=== PATIENT | male | born 1940 | race Caucasian/White ===

== ENCOUNTER → 2017-07-21 | Outpatient (CLI) | payer OTHER | END | disposition home or self-care (01) | LOC: OIH 15:39 | PROVIDERS: ATTEND Family Medicine | DX: M19.021 Primary osteoarthritis, right elbow (principal); M19.031 Primary osteoarthritis, right wrist; M79.89 Other specified soft tissue disorders | CPT/HCPCS: 73080; 73090 ==

== ENCOUNTER → 2017-12-03 | Outpatient (CLI) | payer OTHER | END | disposition home or self-care (01) | LOC: OIH 10:44 | PROVIDERS: ATTEND Family Medicine | DX: Z01.818 Encounter for other preprocedural examination (principal); M47.894 Other spondylosis, thoracic region | CPT/HCPCS: 71046 ==

== ENCOUNTER → 2018-12-27 | Outpatient (CLI) | payer OTHER | END | disposition home or self-care (01) | LOC: RAH 13:16 | PROVIDERS: ATTEND Family Medicine | DX: M17.12 Unilateral primary osteoarthritis, left knee (principal); M25.572 Pain in left ankle and joints of left foot; M25.562 Pain in left knee; M79.89 Other specified soft tissue disorders; R60.0 Localized edema | CPT/HCPCS: 73590; 73610; 73630; 93971 ==

== ENCOUNTER 2021-06-10 10:16 | Emergency (ER) | payer OTHER ==
[~2021-06-10] VITALS: Ht 165.1 cm; Wt 86.2 kg
[2021-06-10] MEDS ORDERED: MORPHINE 4 MG SYG IM SCH (11:00)
[2021-06-10 12:44] VITALS: BP 142/84
== END 2021-06-10 12:56 | disposition home or self-care (01) ==
LOC: EDH 10:16
DX: M17.12 Unilateral primary osteoarthritis, left knee (principal); G89.29 Other chronic pain; M25.562 Pain in left knee; M54.50 Low back pain, unspecified; I10 Essential (primary) hypertension
CPT/HCPCS: 73562; 96372; 99283; J2270

== ENCOUNTER 2021-10-07 13:03 | Emergency (ER) | payer OTHER ==
[~2021-10-07] VITALS: Ht 167.6 cm; Wt 86.2 kg
[2021-10-07 13:26] LABS: BASOPHILS % (AUTO) 0.6 % (0.0-5.0); HEMATOCRIT 43.6 % (42-54); LYMPHOCYTES % (AUTO) 12.6 % (21.0-51.0); MEAN CORPUSCULAR HEMOGLOBIN 29.3 pg (27.0-33.0); MEAN CORPUSCULAR VOLUME 88.8 fL (79-99); MONOCYTES % (AUTO) 9.9 % (3.0-13.0); NEUTROPHILS % (AUTO) 75.7 % (40.0-77.0); PLATELET COUNT (AUTO) 219 K/uL (130-400); RED BLOOD CELL COUNT(AUTO) 4.91 MIL/uL (4.50-6.20); RED CELL DISTRIBUTION WIDTH 13.7 % (11.0-15.5); WHITE BLOOD COUNT (AUTO) 8.4 K/uL (4.8-10.8)
[2021-10-07] MEDS ORDERED: ONDANSETRON 4MG INJ IVP ONE (13:30)
[2021-10-07] MEDS ORDERED: 0.9%NACL 1000ML 1,000 ML IV ONE (13:30)
[2021-10-07] MEDS ORDERED: FAMOTIDINE 20MG VIAL IV ONE (13:30)
[2021-10-07] MEDS ORDERED: DICYCLOMINE 20MG (10MG/ML) AMP IM STA (13:32)
[2021-10-07 13:39] LABS: CREATININE 0.8 mg/dL (0.5-1.5); POTASSIUM 3.8 mmol/L (3.5-5.1)
[2021-10-07 13:49] LABS: ALBUMIN 3.8 g/dL (3.5-5.0); BILIRUBIN,TOTAL 0.3 mg/dL (0.2-1.0); TOTAL PROTEIN, SERUM 7.5 g/dL (6.0-8.3)
[2021-10-07 14:09] LABS: B-TYPE NATRIURETIC PEPTIDE 298 pg/mL (0-100)
[2021-10-07 15:27] LABS: APPEARANCE,URINE Clear (CLEAR); BILIRUBIN,URINE Negative (NEGATIVE); COLOR,URINE Yellow (YELLOW); GLUCOSE, URINE (UA) Negative (NEGATIVE); KETONES,URINE Negative (NEGATIVE); LEUKOCYTE ESTERASE ,URINE Negative (NEGATIVE); NITRATE,URINE Negative (NEGATIVE); OCCULT BLOOD,URINE Negative (NEGATIVE); PROTEIN,URINE Negative (NEGATIVE); UROBILINOGEN,URINE 0.2 mg/dL (0.2-1.0)
[2021-10-07] MEDS ORDERED: KETOROLAC 15MG/ML VIAL (15MG/ML) IV ONE (15:30)
[2021-10-07 17:04] VITALS: BP 145/65
== END 2021-10-07 17:06 | disposition home or self-care (01) ==
LOC: EDH 13:03
DX: R19.7 Diarrhea, unspecified (principal); R11.2 Nausea with vomiting, unspecified; M79.10 Myalgia, unspecified site; R53.1 Weakness; Z20.822 Contact with and (suspected) exposure to COVID-19; I10 Essential (primary) hypertension; E78.00 Pure hypercholesterolemia, unspecified; F41.9 Anxiety disorder, unspecified
CPT/HCPCS: 36415; 71045; 80053; 81003; 83880; 84484; 85025; 87635; 87804 ×2; 93005; 96361; 96374; 96375; 99285; C9803; J0500; J1885; J2405; J3490; J7030

== ENCOUNTER 2021-10-20 06:09 | Observation (INO) | payer OTHER ==
[2021-10-17 09:30] LABS: EOSINOPHILS % (AUTO) 3.4 % (0.0-8.0); HEMATOCRIT 45.2 % (42-54); LYMPHOCYTES % (AUTO) 20.3 % (21.0-51.0); MEAN CORPUSCULAR HGB CONC 32.1 g/dL (32.0-36.0); MEAN CORPUSCULAR VOLUME 90.4 fL (79-99); MONOCYTES % (AUTO) 14.4 % (3.0-13.0); NEUTROPHILS % (AUTO) 60.6 % (40.0-77.0); PLATELET COUNT (AUTO) 200 K/uL (130-400); RED CELL DISTRIBUTION WIDTH 13.6 % (11.0-15.5); WHITE BLOOD COUNT (AUTO) 6.3 K/uL (4.8-10.8)
[2021-10-17 09:31] LABS: APPEARANCE,URINE Clear (CLEAR); BILIRUBIN,URINE Negative (NEGATIVE); COLOR,URINE Yellow (YELLOW); GLUCOSE, URINE (UA) Negative (NEGATIVE); KETONES,URINE Negative (NEGATIVE); LEUKOCYTE ESTERASE ,URINE Negative (NEGATIVE); NITRATE,URINE Negative (NEGATIVE); OCCULT BLOOD,URINE Negative (NEGATIVE); PROTEIN,URINE Negative (NEGATIVE); UROBILINOGEN,URINE 0.2 mg/dL (0.2-1.0)
[2021-10-17 09:41] LABS: INR 1.72 (0.85-1.15); PROTHROMBIN TIME 17.8 SEC (9.6-11.6)
[2021-10-17 09:43] LABS: CREATININE 0.8 mg/dL (0.5-1.5); POTASSIUM 4.2 mmol/L (3.5-5.1)
[2021-10-17 11:48] VITALS: BP 137/69
[2021-10-20] VITALS (22 sets, daily range): BP systolic 120–147; BP diastolic 67–103
[~2021-10-20] VITALS: Ht 167.6 cm; Wt 86.3 kg
[2021-10-20] MEDS ORDERED: 0.9%NACL 1000ML 1,000 ML IV ONE (06:35)
[2021-10-20 07:01] LABS: INR 1.15 (0.85-1.15); PROTHROMBIN TIME 12.4 SEC (9.6-11.6)
[2021-10-20] MEDS: CEFAZOLIN SODIUM 1 GM VIAL ONE ×2 (08:04→09:20)
[2021-10-20] MEDS ORDERED: PHENYLEPHRINE HCL 10 MG/ML 1ML VIAL IV ONE (08:13)
[2021-10-20] MEDS ORDERED: LIDOCAINE PF 100MG/5ML (2%) SYRINGE 5ML ONE (08:13)
[2021-10-20] MEDS ORDERED: MIDAZOLAM HCL 1 MG/ML 2ML VIAL ONE (08:13)
[2021-10-20] MEDS ORDERED: DEXAMETHASONE SOD PHOSPHATE 10MG/ML 1ML VIAL ONE (08:14)
[2021-10-20] MEDS ORDERED: FENTANYL CITRATE PF 50 MCG/1 ML 2ML VIAL ONE (08:14)
[2021-10-20] MEDS ORDERED: ONDANSETRON 4MG INJ ONE (08:14)
[2021-10-20] MEDS ORDERED: PROPOFOL 10 MG/ML 20ML VIAL IV ONE (08:14)
[2021-10-20] MEDS ORDERED: TAMS-1 PO (08:16)
[2021-10-20] MEDS ORDERED: ATEN100T PO (08:16)
[2021-10-20] MEDS ORDERED: SIMV-46 PO (08:16)
[2021-10-20] MEDS ORDERED: DIAZ2TAB3 PO (08:16)
[2021-10-20] MEDS ORDERED: METF-444 PO (08:16)
[2021-10-20] MEDS ORDERED: PANT40TA54 PO (08:16)
[2021-10-20] MEDS ORDERED: LISI20TA24 PO (08:16)
[2021-10-20] MEDS ORDERED: LAMO25TA9 PO (08:16)
[2021-10-20] MEDS ORDERED: WARF6TAB49 PO (08:16)
[2021-10-20] MEDS ORDERED: LORA10TA7 PO (08:16)
[2021-10-20] MEDS ORDERED: mvi PO (08:26)
[2021-10-20] MEDS ORDERED: testosterone PO (08:26)
[2021-10-20] MEDS ORDERED: DIPH50LI PO (08:26)
[2021-10-20] MEDS ORDERED: AMLO-257 PO (08:26)
[2021-10-20] MEDS ORDERED: BIMA12.5OS OU (08:26)
[2021-10-20] MEDS ORDERED: GABA-529 PO (08:26)
[2021-10-20] MEDS ORDERED: OLOP2.5D12 OP (08:26)
[2021-10-20] MEDS ORDERED: tylenol #4 PO (08:26)
[2021-10-20] MEDS ORDERED: BRIN8DRO OU (08:26)
[2021-10-20] MEDS ORDERED: krill oil PO (08:26)
[2021-10-20] MEDS ORDERED: vitamin b12 PO (08:26)
[2021-10-20] MEDS ORDERED: vitamin d PO (08:26)
[2021-10-20] MEDS ORDERED: OXYB10TA30 PO (08:26)
[2021-10-20] MEDS ORDERED: coq10 PO (08:26)
[2021-10-20] MEDS ORDERED: tylenol arthritis PO (08:26)
[2021-10-20] MEDS ORDERED: CEFAZOLIN SODIUM 1 GM VIAL ONE (08:39)
[2021-10-20] MEDS ORDERED: ACETAMINOPHEN 500 MG TABLET ONE (08:40)
[2021-10-20] MEDS ORDERED: KETOROLAC 15MG/ML VIAL (15MG/ML) ONE (08:40)
[2021-10-20] MEDS ORDERED: TRANEXAMIC ACID 1000MG/10ML ONE (08:40)
[2021-10-20] MEDS ORDERED: CELECOXIB 200 MG CAP ONE (08:41)
[2021-10-20] MEDS ORDERED: EPHEDRINE SULFATE 50 MG/ML AMPULE ONE (09:28)
[2021-10-20] MEDS ORDERED: ONDANSETRON 4MG INJ IVP PRN (12:00)
[2021-10-20] MEDS ORDERED: POTASSIUM CHLORIDE 20MEQ/100ML 100 ML IV PRN (12:00)
[2021-10-20] MEDS ORDERED: FERROUS FUMARATE 324 MG TABLET PO PRN (12:00)
[2021-10-20] MEDS: ACETAMINOPHEN 500 MG TABLET PO SCH ×2 (12:00→20:18)
[2021-10-20] MEDS ORDERED: KCL 20 MEQ ERTAB PO PRN (12:00)
[2021-10-20] MEDS ORDERED: DiphenhydrAMINE HCL 50 MG/ML VIAL IVP PRN (12:00)
[2021-10-20] MEDS ORDERED: POTASSIUM CHLORIDE 10% ELIXIR 20 MEQ/15 ML UDCUP PO PRN (12:00)
[2021-10-20] MEDS ORDERED: OXYCODONE HCL 5 MG TAB PO PRN (12:00)
[2021-10-20] MEDS ORDERED: TEMAZEPAM 15 MG CAPSULE PO PRN (12:00)
[2021-10-20] MEDS ORDERED: TRAMADOL HCL 50 MG TABLET PO PRN (12:00)
[2021-10-20] MEDS ORDERED: LIDOCAINE HCL-MPF 1% 2ML VIAL IV PRN (12:00)
[2021-10-20] MEDS: 0.9%NACL 1000ML 1,000 ML IV SCH ×2 (14:31→20:29)
[2021-10-20] MEDS ORDERED: LORATADINE 10 MG TABLET PO SCH (16:00)
[2021-10-20] MEDS ORDERED: DIAZEPAM 2 MG TAB PO PRN (16:00)
[2021-10-20] MEDS: INSULIN HUMULIN R 100 UNIT/ML 3ML SQ SCH (16:30)
[2021-10-20] MEDS ORDERED: PHARMACY COMMUNICATION MISC SCH (17:00)
[2021-10-20] MEDS ORDERED: HOME MEDICATION 1 EACH OP PRN (17:00)
[2021-10-20] MEDS: CEFAZOLIN SODIUM 1 GM VIAL IVP SCH (17:21)
[2021-10-20] MEDS: PHARMACY COMMUNICATION MISC SCH (17:25)
[2021-10-20] MEDS: LISINOPRIL 20 MG TABLET PO SCH (20:17)
[2021-10-20] MEDS: AMLODIPINE 5 MG TAB PO SCH (20:17)
[2021-10-20] MEDS: OXYCODONE HCL 5 MG TAB PO PRN (20:18)
[2021-10-20] MEDS: LAMOTRIGINE 25 MG TAB PO SCH (20:19)
[2021-10-20] MEDS: Bimatoprost (Lumigan 0.01% Ophth Soln) 1 DROP OU SCH (20:19)
[2021-10-20] MEDS: PREGABALIN 25 MG CAP PO SCH (20:19)
[2021-10-20] MEDS: CELECOXIB 200 MG CAP PO SCH (20:19)
[2021-10-20] MEDS: Brinzolamide/Brimonid Tart (Simbrinza 1%-0.2% Eye Drops) OU SCH (20:19)
[2021-10-20] MEDS: SIMVASTATIN 20 MG TABLET PO SCH (20:19)
[2021-10-20] MEDS ORDERED: FAMOTIDINE 20MG TAB PO SCH (21:00)
[2021-10-20] MEDS ORDERED: LAMOTRIGINE 50 MG PO SCH (21:00)
[2021-10-20] MEDS ORDERED: NON-FORMULARY MEDICATION 1 EACH (Simvastatin 40 MG) PO SCH (21:00)
[2021-10-21] VITALS (7 sets, daily range): BP systolic 127–157; BP diastolic 82–97
[2021-10-21] MEDS: CEFAZOLIN SODIUM 1 GM VIAL IVP SCH (00:51)
[2021-10-21] MEDS: PHARMACY COMMUNICATION MISC SCH ×3 (01:30→17:03)
[2021-10-21 03:41] LABS: HEMATOCRIT 37.5 % (42-54); MEAN CORPUSCULAR HEMOGLOBIN 29.2 pg (27.0-33.0); MEAN CORPUSCULAR HGB CONC 32.5 g/dL (32.0-36.0); MEAN CORPUSCULAR VOLUME 89.7 fL (79-99); RED BLOOD CELL COUNT(AUTO) 4.18 MIL/uL (4.50-6.20); RED CELL DISTRIBUTION WIDTH 13.9 % (11.0-15.5); WHITE BLOOD COUNT (AUTO) 15.5 K/uL (4.8-10.8)
[2021-10-21 03:51] LABS: CREATININE 0.7 mg/dL (0.5-1.5); POTASSIUM 3.8 mmol/L (3.5-5.1)
[2021-10-21] MEDS: ACETAMINOPHEN 500 MG TABLET PO SCH ×3 (04:21→20:41)
[2021-10-21] MEDS: INSULIN HUMULIN R 100 UNIT/ML 3ML SQ SCH ×4 (06:47→20:39)
[2021-10-21] MEDS: 0.9%NACL 1000ML 1,000 ML IV SCH (08:00)
[2021-10-21] MEDS: LAMOTRIGINE 25 MG TAB PO SCH ×2 (08:22→20:33)
[2021-10-21] MEDS: CYANOCOBALAMIN (VITAMIN B-12) 1,000 MCG TABLET PO SCH (08:23)
[2021-10-21] MEDS: CELECOXIB 200 MG CAP PO SCH ×2 (08:23→20:33)
[2021-10-21] MEDS: PREGABALIN 25 MG CAP PO SCH ×2 (08:23→20:33)
[2021-10-21] MEDS: ATENOLOL 50 MG TABLET PO SCH (08:23)
[2021-10-21] MEDS: PANTOPRAZOLE 40 MG TAB DR PO SCH (08:23)
[2021-10-21] MEDS: CALCIUM CARB 500MG PO PRN ×2 (08:24→20:33)
[2021-10-21] MEDS: OXYBUTYNIN 5 MG TAB.SR.24H PO SCH (08:24)
[2021-10-21] MEDS: POLYETHYLENE GLYCOL 3350 17 GM POWD.PACK PO SCH (08:24)
[2021-10-21] MEDS: TAMSULOSIN HCL 0.4 MG CAP.ER.24H PO SCH (08:25)
[2021-10-21] MEDS: Brinzolamide/Brimonid Tart (Simbrinza 1%-0.2% Eye Drops) OU SCH ×2 (08:34→20:39)
[2021-10-21] MEDS: TESTOSTERONE PO SCH (08:34)
[2021-10-21] MEDS ORDERED: NON-FORMULARY MEDICATION 1 EACH (Oxybutynin Chloride (Oxybutynin Chloride ER) 10 MG) PO SCH (09:00)
[2021-10-21] MEDS ORDERED: TAMSULOSIN HCL 0.4 MG CAP.ER.24H PO SCH (09:00)
[2021-10-21] MEDS ORDERED: APIXABAN 5 MG TABLET PO ONE (09:00)
[2021-10-21] MEDS ORDERED: GABAPENTIN 100 MG CAPSULE PO SCH (09:00)
[2021-10-21] MEDS ORDERED: NON-FORMULARY MEDICATION 1 EACH (Atenolol 100 MG) PO SCH (09:00)
[2021-10-21] MEDS: METFORMIN HCL 500 MG TABLET PO SCH (09:56)
[2021-10-21] MEDS: OXYCODONE HCL 5 MG TAB PO PRN ×3 (10:01→20:34)
[2021-10-21] MEDS: LISINOPRIL 20 MG TABLET PO SCH (20:33)
[2021-10-21] MEDS: AMLODIPINE 5 MG TAB PO SCH (20:34)
[2021-10-21] MEDS: SIMVASTATIN 20 MG TABLET PO SCH (20:35)
[2021-10-21] MEDS: Bimatoprost (Lumigan 0.01% Ophth Soln) 1 DROP OU SCH (20:39)
[2021-10-21] MEDS: KETOROLAC 15MG/ML VIAL (15MG/ML) IV PRN (22:33)
[2021-10-22] MEDS: PHARMACY COMMUNICATION MISC SCH (01:30)
[2021-10-22] MEDS: OXYCODONE HCL 5 MG TAB PO PRN ×3 (02:35→12:46)
[2021-10-22 04:30] VITALS: BP 148/95
[2021-10-22] MEDS: ACETAMINOPHEN 500 MG TABLET PO SCH ×2 (06:27→14:13)
[2021-10-22] MEDS: INSULIN HUMULIN R 100 UNIT/ML 3ML SQ SCH ×3 (06:30→16:17)
[2021-10-22] MEDS: Brinzolamide/Brimonid Tart (Simbrinza 1%-0.2% Eye Drops) OU SCH (07:27)
[2021-10-22] MEDS: TESTOSTERONE PO SCH (07:27)
[2021-10-22 08:00] VITALS: BP 137/77
[2021-10-22] MEDS: CYANOCOBALAMIN (VITAMIN B-12) 1,000 MCG TABLET PO SCH (08:39)
[2021-10-22] MEDS: PREGABALIN 25 MG CAP PO SCH (08:39)
[2021-10-22] MEDS: LAMOTRIGINE 25 MG TAB PO SCH (08:40)
[2021-10-22] MEDS: ATENOLOL 50 MG TABLET PO SCH (08:40)
[2021-10-22] MEDS: PANTOPRAZOLE 40 MG TAB DR PO SCH (08:40)
[2021-10-22] MEDS: CELECOXIB 200 MG CAP PO SCH (08:41)
[2021-10-22] MEDS: POLYETHYLENE GLYCOL 3350 17 GM POWD.PACK PO SCH (08:41)
[2021-10-22] MEDS: TAMSULOSIN HCL 0.4 MG CAP.ER.24H PO SCH (08:41)
[2021-10-22] MEDS: OXYBUTYNIN 5 MG TAB.SR.24H PO SCH (08:41)
[2021-10-22] MEDS: METFORMIN HCL 500 MG TABLET PO SCH (08:43)
[2021-10-22] MEDS: KETOROLAC 15MG/ML VIAL (15MG/ML) IV PRN (10:39)
[2021-10-22 12:00] VITALS: BP 131/77
[2021-10-22] MEDS ORDERED: APIXABAN 5 MG TABLET PO SCH (12:00)
[2021-10-22 16:00] VITALS: BP 135/75
[2021-10-23] MEDS ORDERED: BISACODYL 10 MG SUPP.RECT RC PRN (12:00)
== END 2021-10-22 19:29 | disposition home or self-care (01) ==
LOC: DAH 06:09 → DAHIP 06:10 → 4AH 13:30
PROVIDERS: ADMIT Orthopaedic Surgery; ATTEND Orthopaedic Surgery
DX: M17.12 Unilateral primary osteoarthritis, left knee (principal); Z20.822 Contact with and (suspected) exposure to COVID-19; M23.8X2 Other internal derangements of left knee; E11.65 Type 2 diabetes mellitus with hyperglycemia; E78.5 Hyperlipidemia, unspecified; E11.9 Type 2 diabetes mellitus without complications; G47.30 Sleep apnea, unspecified; G89.29 Other chronic pain; M25.562 Pain in left knee; M54.9 Dorsalgia, unspecified; I10 Essential (primary) hypertension; R26.89 Other abnormalities of gait and mobility; I48.91 Unspecified atrial fibrillation; Z96.643 Presence of artificial hip joint, bilateral; Z96.651 Presence of right artificial knee joint; Z79.899 Other long term (current) drug therapy; Z98.890 Other specified postprocedural states
CPT/HCPCS: 27447; 36415 ×3; 64447; 76942; 80048 ×2; 81003; 82948 ×10; 85025; 85027; 85610 ×2; 87088; 87635; 87641; 88305; 88311; 96374; 96375; 96376 ×2; 97039 ×5; 97116 ×3; 97161; 97530 ×5; A4215; A4221; A4222; A4223; A4649 ×5; A4663; A5120; A9272; C1776; C9803; G0378 ×51; J0690 ×4; J1100; J1885 ×3; J2001; J2250; J2370; J2405; J2704; J3010; J3490 ×2; J7030 ×3; J7120

== ENCOUNTER 2022-05-25 10:37 | Emergency (ER) | payer OTHER ==
[~2022-05-25] VITALS: Ht 165.1 cm; Wt 81.6 kg
[~2022-05-25 10:37] MED LIST: AMLO-257 PO; ATEN100T PO; BIMA12.5OS OU; BRIN8DRO OU; DIAZ2TAB3 PO; DIPH50LI PO; GABA-529 PO; LAMO25TA9 PO; LISI20TA24 PO; LORA10TA7 PO; METF-444 PO; OLOP2.5D12 OP; OXYB10TA30 PO; PANT40TA54 PO; SIMV-46 PO; TAMS-1 PO; coq10 PO; krill oil PO; mvi PO; testosterone PO; vitamin b12 PO; vitamin d PO
[2022-05-25 11:14] LABS: BASOPHILS % (AUTO) 0.8 % (0.0-5.0); EOSINOPHILS % (AUTO) 2.5 % (0.0-8.0); HEMATOCRIT 44.2 % (42-54); MEAN CORPUSCULAR HEMOGLOBIN 28.9 pg (27.0-33.0); MEAN CORPUSCULAR HGB CONC 31.9 g/dL (32.0-36.0); MEAN CORPUSCULAR VOLUME 90.6 fL (79-99); MONOCYTES % (AUTO) 10.4 % (3.0-13.0); PLATELET COUNT (AUTO) 166 K/uL (130-400); RED BLOOD CELL COUNT(AUTO) 4.88 MIL/uL (4.50-6.20); RED CELL DISTRIBUTION WIDTH 13.7 % (11.0-15.5); WHITE BLOOD COUNT (AUTO) 6.1 K/uL (4.8-10.8)
[2022-05-25 11:22] LABS: POTASSIUM 4.1 mmol/L (3.5-5.1)
[2022-05-25 11:26] LABS: TOTAL PROTEIN, SERUM 7.7 g/dL (6.0-8.3)
[2022-05-25 11:45] LABS: B-TYPE NATRIURETIC PEPTIDE 175 pg/mL (0-100)
[2022-05-25] MEDS ORDERED: KETOROLAC 60 MG VIAL (30MG/ML) IM ONE (12:00)
[2022-05-25] MEDS ORDERED: HYDROCODONE/ACETAMINOPHEN 10/325 MG TAB PO ONE (12:00)
[2022-05-25] MEDS ORDERED: ACET1TAB97 PO (12:58)
[2022-05-25 13:22] VITALS: BP 145/98
== END 2022-05-25 13:35 | disposition home or self-care (01) ==
LOC: EDH 10:37
DX: I10 Essential (primary) hypertension (principal); G89.29 Other chronic pain; M25.552 Pain in left hip; I48.91 Unspecified atrial fibrillation; Z79.1 Long term (current) use of non-steroidal anti-inflammatories (NSAID); E78.00 Pure hypercholesterolemia, unspecified
CPT/HCPCS: 99284; 83735; 84484; 80053; 83880; 85025; 36415; 96372; 93005; J1885

== ENCOUNTER 2022-08-18 05:42 | Emergency (ER) | payer OTHER ==
[~2022-08-18 05:42] MED LIST changes: +ACET1TAB97 PO
[2022-08-18 10:07] VITALS: BP 110/83
== END 2022-08-18 10:09 | disposition home or self-care (01) ==
LOC: EDH 05:42
DX: R20.2 Paresthesia of skin (principal); G89.29 Other chronic pain; M54.50 Low back pain, unspecified; M21.372 Foot drop, left foot; M21.371 Foot drop, right foot; I10 Essential (primary) hypertension; E78.00 Pure hypercholesterolemia, unspecified; Z79.899 Other long term (current) drug therapy; Z79.84 Long term (current) use of oral hypoglycemic drugs; Z98.890 Other specified postprocedural states; Z88.8 Allergy status to other drugs, medicaments and biological substances; Z96.653 Presence of artificial knee joint, bilateral
CPT/HCPCS: 72131

== ENCOUNTER → 2022-09-01 | Outpatient (CLI) | payer OTHER ==
[~2022-09-01] MED LIST changes: +REGADENOSON 0.4 MG/5 ML PF SYG IVP SCH
== END | disposition home or self-care (01) ==
LOC: SHCH 08:06
PROVIDERS: ATTEND Internal Medicine Cardiovascular Disease
DX: I47.20 Ventricular tachycardia, unspecified (principal); E11.9 Type 2 diabetes mellitus without complications; Z79.899 Other long term (current) drug therapy
CPT/HCPCS: 78452; 96374; 93017; J2785; A9500 ×2

== ENCOUNTER → 2023-11-17 | Outpatient (CLI) | payer OTHER ==
[~2023-11-17] MED LIST changes: -REGADENOSON 0.4 MG/5 ML PF SYG IVP SCH
== END | disposition home or self-care (01) ==
LOC: RAH 10:19
PROVIDERS: ATTEND Anesthesiology Pain Medicine
DX: M47.818 Spondylosis without myelopathy or radiculopathy, sacral and sacrococcygeal region (principal); M43.27 Fusion of spine, lumbosacral region; M43.17 Spondylolisthesis, lumbosacral region; M47.816 Spondylosis without myelopathy or radiculopathy, lumbar region; M48.061 Spinal stenosis, lumbar region without neurogenic claudication; M85.88 Other specified disorders of bone density and structure, other site; M54.50 Low back pain, unspecified
CPT/HCPCS: 72114; 72220